=== PATIENT | female | born 1950 | race Caucasian/White ===

== ENCOUNTER → 2017-07-24 | Outpatient (CLI) | payer MEDICAID ==
[~2017-07-24] MED LIST: AMOXICILLIN500 MG PO; ANTIVERT/2525 M1 PO; ANTIVERT25 MG PO; ARTIFICIAL TEAR15 M1 OPH; ATIVAN1 MG PO; AUGMENTIN 875 M1 TAB PO; CARAFATE1 GM PO; CIPRO250 MG PO; CIPROFLOXACIN500 MG PO; CLARITIN10 MG PO; EPI EZ PEN1 MG/ML IM; FLAGYL500 MG PO; K-DUR 1010 MEQ PO; LASIX20 MG PO; MACROBID100 M1 PO; MEDROL DOSEPAK4 MG PO; MOTRIN800 MG PO; NKHM; PRILOSEC20 M2 PO; PT DOES NOT KNOW MED; RISPERDAL1 M1 PO; TRAMADOL HCL50 MG PO; TYLENOL325 M1 PO; VENTOLIN H0.09 MG/AC INH; VIBRAMYCIN100 MG PO; VITAMIN D32000 UNIT PO; XANAX1 MG PO; ZANTAC150 MG PO; ZITHROMAX Z PA250 MG PO; ZOFRAN ODT4 MG SL; ZOFRAN4 MG PO
== END | disposition home or self-care (01) ==
LOC: MRI 02:09
DX: M54.5 Low back pain (principal)

== ENCOUNTER 2017-09-27 06:18 | Inpatient (IN) | payer MEDICAID ==
[2017-09-27] VITALS (7 sets, daily range): BP systolic 100–132; BP diastolic 44–76
[~2017-09-27] VITALS: Ht 167.6 cm; Wt 86.0 kg
--- NOTE | ~2017-09-27 | WRIGHTHP ---
[place], [place] PATIENT HISTORY AND PHYSICAL EXAM NAME: RAJI ORTIZ [facility] #: [id number] UNIT #: [id number] ROOM: H2006 DOCTOR: PANFILO FRANCIS MD BIRTHDATE: [birth year] DOS: 09/27/2017 HISTORY OF PRESENT ILLNESS: The patient presented to the Emergency Department at [facility] with shortness of breath and tachypnea. The patient has allergies to IVP DYE and elevated D-dimer level and showing some vascular congestion on the chest x-ray, atelectasis versus pneumonic infiltrates, left greater than the right base. The patient had complaints of wheezing, shortness of breath and chest congestion for the last couple of days and she had mild leukocytosis. The patient apparently did not want further testing with a VQ scan and she was started on Eliquis in the Emergency Department as a precaution and admitted to ICU for close monitoring. REVIEW OF SYSTEMS: LUNGS: Increased shortness of breath and wheezing and chest congestion. GASTROINTESTINAL: No nausea, vomiting, diarrhea, or constipation. CARDIOVASCULAR: Some vague complaints of chest pains earlier and chest congestion. FAMILY HISTORY: Noncontributory. HOME MEDICATIONS: Omeprazole, Singulair, Depakote, loratadine, Colace, lorazepam, Vicodin, furosemide. PHYSICAL EXAMINATION: GENERAL: Alert and oriented x 3, in no visible distress. HEENT AND NECK: Extraocular movements are intact. Sclerae are anicteric. Oral mucosa is moist and clean. No obvious facial weakness. Neck is supple without any lymphadenopathy. No thyromegaly. No JVD. No carotid arterial bruits. LUNGS: Clear to auscultation. No wheezing. No rhonchi. CARDIOVASCULAR SYSTEM: Heart rate is regular in rate and rhythm. S1 and S2 normally audible. No significant murmur or any other abnormal cardiac sounds. ABDOMEN: Soft, nontender. No obvious organomegaly. Bowel sounds are present. No obvious herniation. EXTREMITIES: Without significant cyanosis. Warm to touch. Leg edema. CENTRAL NERVOUS SYSTEM: Alert and oriented x 3. Cranial nerves II-XII are intact. Speech is normal. The patient is able to move all extremities. Normal muscle strength. Deep tendon reflexes are equal on both sides. Plantars were downgoing. IMPRESSION: 1. The patient with chest pains from uncertain etiology. I will check the cardiac enzymes and consult cardiology. 2. Slight suspicion for pulmonary embolism with elevated D-dimers. The patient does not want a VQ scan, which I recommended and she is allergic to IODINE for a CT scan. I am admitting her to the ICU and keeping her on apixaban and I will get a Pulmonary consult. 3. Acute exacerbation of chronic obstructive pulmonary disease with suspected pneumonic infiltrates, to be treated with bronchodilators, antibiotics and oxygen as needed. 4. Obesity. The patient to work with dietary. [place], [place] PATIENT HISTORY AND PHYSICAL EXAM NAME: RAJI ORTIZ UNIT #: [id number] ROOM: [facility] DOCTOR: PENNY BELL,PANFILO Gonzalez BIRTHDATE: [birth year] 5. Generalized anxiety disorder, is being treated. PANFILO FRANCIS MD CM:HISPHYS:PATIENT HISTORY AND PHYSICAL EXAMINATION 1101 [id number] PANFILO FRANCIS MD 09/27/17 1134 interface
--- NOTE | ~2017-09-27 | DS ---
[place], [place] DISCHARGE SUMMARY NAME: RAJI ORTIZ UNIT #: [id number] ROOM: 506 DOCTOR: PANFILO FRANCIS MD BIRTHDATE: [birth year] DOS: 09/29/2017 DISCHARGE DIAGNOSES: 1. Chest pains from uncertain etiology, most likely musculoskeletal pains or gastrointestinal related pains. Negative cardiac enzymes. The patient was seen by Cardiology. 2. Shortness of breath and wheezing, asthmatoid wheezing, treated with bronchodilators. V/Q scan negative. The patient evaluated by ruby on rails software developer. 3. History of pollen allergies. 4. Chronic constipation. 5. Generalized anxiety disorder. 6. Chronic pain syndrome. 7. GERD and esophagitis. HOSPITAL COURSE: The patient presented to the Emergency Department at [facility] with shortness of breath, tachypnea. D-dimer was elevated. THE PATIENT IS ALLERGIC TO IODINE DYE for later on she was taken for a V/Q scan, which showed low probability for pulmonary embolism. The patient was treated with bronchodilators and her breathing has improved. She is breathing normally. The patient initially treated with Eliquis while the V/Q scan was pending because it could not be performed at the time of admission. Acute asthmatoid wheezing resolved with bronchodilators. The patient generalized anxiety disorder and also chronic pain syndrome with chronic complains of lower back pains for which patient continues to request opioids. Gastroesophageal reflux disease and esophagitis, asymptomatic with omeprazole. The patient to follow up with her PCP, Dr. Luba Palmer as an outpatient. DISCHARGE MANAGEMENT: Lorazepam 0.5 mg b.i.d. p.r.n., Depakote 250 mg b.i.d., Colace 100 mg daily, loratadine 10 mg a day. The patient also takes Depakote 500 mg at bedtime, Singulair 10 mg a day, MiraLax 17 grams a day, omeprazole 20 mg a day. [place], [place] DISCHARGE SUMMARY NAME: RAJI ORTIZ UNIT #: [id number] ROOM: 506 DOCTOR: PANFILO FRANCIS MD BIRTHDATE: [birth year] PANFILO FRANCIS MD CM:JAROD 15 30 PANFILO FRANCIS MD 09/29/172130 interface
--- NOTE | ~2017-09-27 | PR ---
[place], [place] PROGRESS NOTE [id number] UNIT #: [id number] ROOM: 506 DOCTOR: PANFILO FRANCIS MD BIRTHDATE: [birth year] DOS: 09/28/2017 SUBJECTIVE: The patient without anymore chest pains, continues to complain of lower back pains and asks for more pain medications. OBJECTIVE: VITAL SIGNS: Blood pressure 123/70, heart rate 88 beats per minute, breathing 20 times per minute, temperature 98 degrees Fahrenheit. GENERAL APPEARANCE: The patient is alert and oriented x 3, in no visible distress. HEENT AND NECK: Exam within normal limits. CARDIOVASCULAR SYSTEM: Heart rate is regular in rate and rhythm. S1 and S2 normally audible. LUNGS: Clear to auscultation. ABDOMEN: Soft, nontender. No obvious organomegaly. Bowel sounds are present. EXTREMITIES: Without significant cyanosis or edema. IMPRESSION: 1. Chest pains from uncertain etiology. She underwent cardiac stress testing this morning. Full results are still pending. 2. For suspicion of pulmonary embolism, the patient is anticoagulated by Cardiology because of elevation of D-dimer. V/Q scan was low probability. 3. Acute exacerbation of chronic obstructive pulmonary disease, being treated with DuoNeb 4. Obesity. The patient is working with Dietary. 5. Generalized anxiety disorder, followed, treated and controlled. 6. Chronic lower back pains, for which the patient requests Percocet for pain control. The patient apparently had been on opioids as an outpatient for pain control. PANFILO FRANCIS MD CM:PNTRANS [id number] PANFILO FRANCIS MD 09/28/17 1754 interface
[2017-09-27 07:00] LABS: BASO # 0.1 10*3/uL (0.0-0.1); BASO % 0.6 % (0.0-1.0); EOS # 0.2 10*3/uL (0.0-0.4); EOS % 1.9 % (1.0-4.0); HEMATOCRIT 43.9 % (37.0-47.0); HEMOGLOBIN 13.9 g/dl (12.0-16.0); LYMPH # 1.3 10*3/uL (1.3-4.4); LYMPH % 10.5 % (27.0-41.0); MEAN CELL VOLUME 95.4 fl (81.0-99.0); MEAN CORPUSCULAR HGB 30.2 pg (27.0-31.0); MEAN CORPUSCULAR HGB CONC 31.7 g/dl (33.0-37.0); MEAN PLATELET VOLUME 12.2 fl (9.6-12.3); MONO # 0.8 10*3/uL (0.1-1.0); MONO % 6.8 % (3.0-9.0); NEUT # 9.8 10*3/uL (2.3-7.9); NEUT % 79.9 % (47.0-73.0); PLATELET COUNT AUTOMATED 150 10*3/uL (130-400); RED CELL DISTRI WIDTH 13.4 % (0-14.5); WHITE BLOOD COUNT 12.2 10*3/uL (4.8-10.8)
[2017-09-27 08:22] LABS: ALBUMIN 3.4 gm/dl (3.1-4.5); ALKALINE PHOSPHATASE 62 U/L (45-117); BUN 26 mg/dl (7-24); CHLORIDE 103 mmol/L (98-107); CREATININE 1.11 mg/dL (0.55-1.02); POTASSIUM 4.8 mmol/L (3.5-5.1); SGOT/AST 18 IU/L (3-35); SGPT/ALT 19 U/L (12-78); SODIUM 138 mmol/L (136-145); TOTAL PROTEIN 7.4 gm/dL (6.4-8.2)
[2017-09-27 08:23] LABS: TROPONIN I < 0.015 ng/ml (<0.045)
[2017-09-27] MEDS ORDERED: ATIVAN0.5 MG PO (08:32)
[2017-09-27] MEDS ORDERED: ADV 100/50 INH (08:32)
[2017-09-27] MEDS ORDERED: CENTRUM COMPLE1 EACH PO (08:33)
[2017-09-27] MEDS ORDERED: CYMBALTA30 MG PO ×2 (08:33→12:28)
[2017-09-27] MEDS ORDERED: DEPAKOTE500 MG PO (08:35)
[2017-09-27] MEDS ORDERED: DOCUSATE SOD100 MG PO (08:35)
[2017-09-27] MEDS ORDERED: DEPAKOTE250 MG PO (08:35)
[2017-09-27] MEDS ORDERED: EVISTA60 MG PO (08:36)
[2017-09-27] MEDS ORDERED: FLONASE ALLERG9.9 ML NAS (08:36)
[2017-09-27] MEDS ORDERED: MELATONIN5 M1 SL (08:37)
[2017-09-27] MEDS ORDERED: CLARITIN10 MG PO (08:37)
[2017-09-27] MEDS ORDERED: MONTELUKAST SOD10 MG PO (08:37)
[2017-09-27] MEDS ORDERED: OYSTER SHELL 51 EACH PO (08:38)
[2017-09-27] MEDS ORDERED: NORCO 5-325 TA1 EACH PO (08:38)
[2017-09-27] MEDS ORDERED: VITAMIN D31000 UNI1 PO (08:38)
[2017-09-27] MEDS ORDERED: OMEPRAZOLE20 M2 PO (08:38)
[2017-09-27 08:57] LABS: INTERNATIONAL NORM RATIO 0.9 (2.0-3.5)
[2017-09-27 09:48] LABS: ACT PARTIAL THROMBO TIME < 18.0 SECONDS (20.8-31.5)
[2017-09-27] MEDS ORDERED: CYMBALTA60 MG PO (12:28)
[2017-09-27] MEDS ORDERED: MUSCLE RUB CREA35 GM TP (12:30)
[2017-09-27] MEDS ORDERED: ALKA-SELTZER P1 EAC4 PO (12:31)
[2017-09-28] VITALS: BP 101/60
[2017-09-28 08:00] VITALS: BP 96/60
[2017-09-28 12:00] VITALS: BP 123/70
[2017-09-28 12:05] LABS: ACT PARTIAL THROMBO TIME 23.3 SECONDS (20.8-31.5)
[2017-09-28 16:00] VITALS: BP 111/68
[2017-09-28 20:00] VITALS: BP 104/65
[2017-09-29] VITALS: BP 110/64
[2017-09-29 08:00] VITALS: BP 100/61
[2017-09-29 12:00] VITALS: BP 100/57
[2017-09-29 20:00] VITALS: BP 105/47
== END 2017-09-29 21:48 | disposition other institution (70) | DRG 190 ==
LOC: ED 06:18 → EDHOLD 09:22 → 5E 09:22 → EDHOLD 09:48 → ICCU 12:17 → 5E 17:19
PROVIDERS: Internal Medicine Cardiovascular Disease; Student in an Organized Health Care Education/Training Program
DX: J44.1 Chronic obstructive pulmonary disease with (acute) exacerbation (principal); I26.99 Other pulmonary embolism without acute cor pulmonale; I50.9 Heart failure, unspecified; K59.09 Other constipation; F41.1 Generalized anxiety disorder; G89.4 Chronic pain syndrome; M54.5 Low back pain; E66.9 Obesity, unspecified; K21.0 Gastro-esophageal reflux disease with esophagitis; R07.89 Other chest pain; R09.02 Hypoxemia; Z91.041 Radiographic dye allergy status; Z87.891 Personal history of nicotine dependence; Z88.8 Allergy status to other drugs, medicaments and biological substances; Z90.3 Acquired absence of stomach [part of]; Z79.82 Long term (current) use of aspirin; Z68.30 Body mass index [BMI] 30.0-30.9, adult; Z79.899 Other long term (current) drug therapy; Z82.49 Family history of ischemic heart disease and other diseases of the circulatory system; Z83.3 Family history of diabetes mellitus; Z80.9 Family history of malignant neoplasm, unspecified; R79.89 Other specified abnormal findings of blood chemistry

== ENCOUNTER 2017-11-28 06:21 | Inpatient (IN) | payer MEDICAID ==
[~2017-11-28] VITALS: Ht 167.6 cm; Wt 87.5 kg
--- NOTE | ~2017-11-28 | DS ---
[place], [place] DISCHARGE SUMMARY NAME: RAJI ORTIZ [facility] #: [id number] UNIT #: [id number] ROOM: 530 DOCTOR: BREE CELIS MD BIRTHDATE: [birth year] DOS: 12/01/2017 DATE OF ADMISSION: 11/28/2017 DATE OF DISCHARGE: 12/01/2017 DIAGNOSES: 1. Left-sided pneumonia. 2. Mild diastolic congestive heart failure. 3. Hypoxic respiratory failure, pulmonary embolism ruled out. 4. Mild intermittent asthma. 5. Major depression, moderate to severe, recurrent. 6. Mentally retarded developmentally disabled. 7. Generalized anxiety disorder. 8. Degenerative joint disease with spinal stenosis, chronic low back pain. DISCHARGE MEDICATIONS: Medication that she is going to be on are guaifenesin 600 mg p.o. b.i.d., Cipro 500 b.i.d. for 7 days, Ativan 0.5 q. 8 p.r.n., multivitamin 1 tablet daily, Depakote 250 b.i.d. and 500 at bedtime, Colace 100 daily, Evista 60 daily, Flonase 1 spray each nostril daily, loratadine 10 daily, montelukast 10 daily, [place] 5 b.i.d. p.r.n., omeprazole 20 daily, duloxetine 90 mg daily, 60 and 30 together, calcium 500 twice a day, vitamin D 2000 units daily, temazepam 30 at bedtime p.r.n., Advair 100 one puff twice a day, melatonin 5 at bedtime p.r.n., Tylenol 650 twice a day, Lasix 20 Monday, Monday, Monday p.r.n. for leg edema. The patient also needs to have a basic metabolic panel on Monday along with a CBC. Repeat chest x-ray to be done after the completion of antibiotics. DuoNebs q. 8 p.r.n. for shortness of breath. HOSPITAL COURSE: The patient is 67 years old. The patient comes in with hypoxemia. Please refer to H and P for details. After admission, the patient was found to have pneumonia on the chest x-ray. V/Q scan was done, which did not show any evidence of PE. The patient was placed on oxygen, breathing treatments, antibiotics and was admitted. Her white cell count was slightly elevated. A CT scan of the chest was ordered and lactic acid was normal. CT of the chest ordered showed pleural thickening, significant infiltrate in the left upper lobe as well as infiltrate in the left lower lobe. Her white cell count has slowly come down and it is now down to 10.9. BMP shows kidney functions are with a GFR of 53. Electrolytes were normal. Blood culture showed no bacterial growth and the chest x-ray shows some mild fluid overload. IV fluids have been discontinued. The patient was given one dose of Lasix and the plan is to discharge her to home today. She is no longer hypoxic and there is improvement in the pneumonia on the x-ray. After the completion of antibiotics, please do a repeat chest x-ray. DIET: Regular. [place], [place] DISCHARGE SUMMARY NAME: RAJI ORTIZ UNIT #: [id number] ROOM: [facility] DOCTOR: BREE CELIS MD BIRTHDATE: [birth year] BREE CELIS MD CM:DISCHARG 0749 [id number] BREE CELIS MD 12/08/17 0848 interface
--- NOTE | ~2017-11-28 | PR ---
[place], [place] PROGRESS NOTE NAME: RAJI ORTIZ UNIT #: [id number] ROOM: 530 DOCTOR: BREE CELIS MD BIRTHDATE: [birth year] DOS: 11/30/2017 SUBJECTIVE: The patient is doing fine without any complaints this morning, but she appears short of breath, especially when she walked out of the bathroom. OBJECTIVE: VITAL SIGNS: Graphic trend shows a pressure 107/50, pulse of 82, respirations 20, temperature 98.4. LUNGS: Diminished breath sounds and a few rales heard. HEART: Regular. ABDOMEN: Obese. EXTREMITIES: Without any edema. ASSESSMENT AND PLAN: 1. Left upper and left lower lobe pneumonia, possible gram-negative on multiple IV antibiotics. 2. Hypoxic respiratory failure, on oxygen supplementation now. This is most likely from the underlying pneumonia. 3. Mild depression, recurrent. Continue her home medications. BREE CELIS MD CM:PNTRANS BREE CELIS MD 11/30/17 0737 interface
--- NOTE | ~2017-11-28 | WRIGHTHP ---
[place], [place] PATIENT HISTORY AND PHYSICAL EXAM NAME: RAJI ORTIZ [facility] #: [id number] UNIT #: [id number] ROOM: 530 DOCTOR: BREE CELIS MD BIRTHDATE: [birth year] DOS: 11/28/2017 HISTORY OF PRESENT ILLNESS: The patient is a 67 years old. She is a resident of [facility]. I saw her on Monday and she was not having any complaint. She was ambulating without any shortness of breath. Monday morning, she woke up from bed and was unable to get up out of bed. She was complaining of shortness of breath and a sudden onset of cough and a saturation in the 70s, so the patient was sent out for an evaluation. Chest x-ray showed multifocal airspace disease with consolidation with a white cell count of 13,000. She was admitted with diagnosis of possible pneumonia, gram negative. She denies having any chest pains, palpitations, does not have any fever or chills this morning. Does not have any abdominal pain, nausea, any emesis. PAST MEDICAL HISTORY: Significant for, 1. Mild intermittent asthma. 2. Major depression. 3. MRDD. 4. Generalized anxiety disorder. 5. Chronic low back pain from degenerative joint disease with lumbar spinal stenosis. MEDICATIONS: She is currently on are Flonase p.r.n., Advair 100 twice a day, calcium twice a day, vitamin D 2000 daily, Depakote 250 b.i.d. and 500 at bedtime, Colace 100 daily, Cymbalta 90 daily, [place] 5 q. 12 hours p.r.n., Claritin 10 daily, lorazepam 0.5 q. 8 hours p.r.n., melatonin 5 at bedtime, montelukast 10 at bedtime, Evista 60 daily, temazepam 30 at bedtime, multivitamin 1 tablet daily. SOCIAL HISTORY: Nonsmoker, does not use any alcohol. She is a resident of [facility]. PHYSICAL EXAMINATION: GENERAL: She is awake and alert and oriented. VITAL SIGNS: Blood pressure is 115/56, pulse of 75, respirations 20, temperature 98.1. LUNGS: Diminished breath sounds, a few scattered rales heard bilaterally. HEART: Regular. ABDOMEN: Obese, soft, nontender. EXTREMITIES: Without any edema. ASSESSMENT AND PLAN: 1. The patient presents with hypoxic respiratory failure. The patient has been admitted with possible pneumonia, gram negative. We will do a chest CT scan to determine further extent of the infection and place on antibiotics and she is a group home resident. Vancomycin has also been added for possible MRSA coverage. 2. Mild intermittent asthma, has been controlled. Continue her inhalers right now along with the Singulair. 3. Major depression with generalized anxiety disorder, stable on multiple medicines. [place], [place] PATIENT HISTORY AND PHYSICAL EXAM [facility]: [facility] [id number] UNIT #: [id number] ROOM: [facility] DOCTOR: BREE CELIS MD BIRTHDATE: [birth year] BREE CELIS MD CM:HISPHYS:PATIENT HISTORY AND PHYSICAL EXAMINATION 3 0744 BREE CELIS MD 11/29/17 0742 interface
--- NOTE | ~2017-11-28 | PR ---
[place], [place] PROGRESS NOTE NAME: [facility] [id number] UNIT #: [id number] ROOM: 530 DOCTOR: BREE CELIS MD BIRTHDATE: [birth year] DOS: 12/01/2017 SUBJECTIVE: The patient is doing fairly well, does not have any complaints today. PHYSICAL EXAMINATION: VITAL SIGNS: Graphic trend shows a pressure of 126/67, pulse of 82, respirations 17, temperature 98.7. LUNGS: Clear. HEART: Regular. ABDOMEN: Obese, soft. EXTREMITIES: Without any edema. DIAGNOSTIC DATA: Chest x-ray yesterday shows some clearing of pneumonia. LABORATORY DATA: White cell count is down to 10.9, hemoglobin 10.9. BMP within normal limits. ASSESSMENT AND PLAN: 1. The patient with a left-sided pneumonia, on IV antibiotics, improving. 2. Hypoxic respiratory failure. Nuclear scan did not show any evidence of PE. 3. The patient is oxygenating well now. The plan is to discharge her back to the long term. Blood cultures have come back negative. Sepsis has been ruled out. BREE ECLIS MD CM:PNTRANS 0742 1339 BREE CELIS MD 12/01/17 1338 interface
[2017-11-28 06:21] VITALS: BP 116/47
[~2017-11-28 06:21] MED LIST changes: +ADV 100/50 INH; +ALKA-SELTZER P1 EAC4 PO; +ATIVAN0.5 MG PO; +CENTRUM COMPLE1 EACH PO; +CYMBALTA30 MG PO; +CYMBALTA60 MG PO; +DEPAKOTE250 MG PO; +DEPAKOTE500 MG PO; +DOCUSATE SOD100 MG PO; +EVISTA60 MG PO; +FLONASE ALLERG9.9 ML NAS; +MELATONIN5 M1 SL; +MONTELUKAST SOD10 MG PO; +MUSCLE RUB CREA35 GM TP; +NORCO 5-325 TA1 EACH PO; +OMEPRAZOLE20 M2 PO; +OYSTER SHELL 51 EACH PO; +VITAMIN D31000 UNI1 PO
[2017-11-28] MEDS ORDERED: TEMAZEPAM30 MG PO (08:09)
[2017-11-28 08:10] LABS: BASO % 0.3 % (0.0-1.0); EOS % 0.1 % (1.0-4.0); HEMATOCRIT 34.5 % (37.0-47.0); LYMPH # 0.6 10*3/uL (1.3-4.4); LYMPH % 4.4 % (27.0-41.0); MEAN CELL VOLUME 92.2 fl (81.0-99.0); MEAN CORPUSCULAR HGB 29.4 pg (27.0-31.0); MEAN CORPUSCULAR HGB CONC 31.9 g/dl (33.0-37.0); MEAN PLATELET VOLUME 11.5 fl (9.6-12.3); MONO # 1.5 10*3/uL (0.1-1.0); NEUT # 11.5 10*3/uL (2.3-7.9); NEUT % 83.8 % (47.0-73.0); PLATELET COUNT AUTOMATED 152 10*3/uL (130-400); RED BLOOD COUNT 3.74 10*6/uL (4.10-5.10); WHITE BLOOD COUNT 13.7 10*3/uL (4.8-10.8)
[2017-11-28] MEDS ORDERED: ADV 100/50 INH (08:16)
[2017-11-28] MEDS ORDERED: MELATONIN5 M6 PO (08:17)
[2017-11-28 08:18] LABS: ACT PARTIAL THROMBO TIME 19.7 SECONDS (20.8-31.5); INTERNATIONAL NORM RATIO 0.9 (2.0-3.5)
[2017-11-28] MEDS ORDERED: CYMBALTA30 MG PO (08:18)
[2017-11-28 08:28] LABS: ALKALINE PHOSPHATASE 50 U/L (45-117); BUN 17 mg/dl (7-24); CHLORIDE 104 mmol/L (98-107); CREATININE 1.03 mg/dL (0.55-1.02); POTASSIUM 4.6 mmol/L (3.5-5.1); SGOT/AST 17 IU/L (3-35); SGPT/ALT 16 U/L (12-78); SODIUM 139 mmol/L (136-145); TOTAL PROTEIN 6.3 gm/dL (6.4-8.2)
[2017-11-28 08:30] LABS: TROPONIN I < 0.015 ng/ml (<0.045)
[2017-11-28 08:35] VITALS: BP 121/63
[2017-11-28 09:15] VITALS: BP 131/56
[2017-11-28] MEDS ORDERED: GOOD NEIGHBOR650 MG PO (10:01)
[2017-11-28 12:00] VITALS: BP 123/76
[2017-11-28 16:00] VITALS: BP 119/56
[2017-11-28 20:00] VITALS: BP 116/60
[2017-11-29] VITALS: BP 115/56
[2017-11-29 08:00] VITALS: BP 114/55
[2017-11-29 12:00] VITALS: BP 99/62
[2017-11-29 16:00] VITALS: BP 111/57
[2017-11-29 20:00] VITALS: BP 128/47
[2017-11-30] VITALS: BP 107/50
[2017-11-30 08:00] VITALS: BP 131/70
[2017-11-30 08:16] LABS: BASO # 0.1 10*3/uL (0.0-0.1); BASO % 0.6 % (0.0-1.0); EOS # 0.3 10*3/uL (0.0-0.4); EOS % 2.9 % (1.0-4.0); HEMATOCRIT 33.2 % (37.0-47.0); HEMOGLOBIN 10.5 g/dl (12.0-16.0); LYMPH % 8.8 % (27.0-41.0); MEAN CORPUSCULAR HGB 28.8 pg (27.0-31.0); MEAN CORPUSCULAR HGB CONC 31.6 g/dl (33.0-37.0); MEAN PLATELET VOLUME 12.2 fl (9.6-12.3); MONO # 1.1 10*3/uL (0.1-1.0); MONO % 10.3 % (3.0-9.0); NEUT # 8.4 10*3/uL (2.3-7.9); PLATELET COUNT AUTOMATED 148 10*3/uL (130-400); RED BLOOD COUNT 3.65 10*6/uL (4.10-5.10); RED CELL DISTRI WIDTH 14.1 % (0-14.5); WHITE BLOOD COUNT 10.9 10*3/uL (4.8-10.8)
[2017-11-30 08:25] LABS: BUN 13 mg/dl (7-24); CHLORIDE 105 mmol/L (98-107); CREATININE 1.03 mg/dL (0.55-1.02); POTASSIUM 4.4 mmol/L (3.5-5.1); SODIUM 138 mmol/L (136-145)
[2017-11-30 12:00] VITALS: BP 108/50
[2017-11-30 16:00] VITALS: BP 106/56
[2017-11-30 20:00] VITALS: BP 124/67
[2017-11-30 23:00] VITALS: BP 126/67
[2017-12-01] VITALS: BP 126/67
[2017-12-01] MEDS ORDERED: CIPRO500 MG PO (07:43)
== END 2017-12-01 12:27 | DRG 177 ==
LOC: ED 06:21 → 5E 08:23 → EDHOLD 08:23 → 5E 08:41
PROVIDERS: Internal Medicine; Student in an Organized Health Care Education/Training Program
DX: J15.6 Pneumonia due to other Gram-negative bacteria (principal); J96.91 Respiratory failure, unspecified with hypoxia; I50.30 Unspecified diastolic (congestive) heart failure; F33.9 Major depressive disorder, recurrent, unspecified; J45.20 Mild intermittent asthma, uncomplicated; F41.1 Generalized anxiety disorder; G89.29 Other chronic pain; M47.896 Other spondylosis, lumbar region; E66.9 Obesity, unspecified; Z91.041 Radiographic dye allergy status; Z79.899 Other long term (current) drug therapy; Z90.49 Acquired absence of other specified parts of digestive tract; Z82.49 Family history of ischemic heart disease and other diseases of the circulatory system; Z83.3 Family history of diabetes mellitus; Z80.8 Family history of malignant neoplasm of other organs or systems; Z68.31 Body mass index [BMI] 31.0-31.9, adult

== ENCOUNTER 2018-12-12 19:12 | Inpatient (IN) | payer MEDICAID ==
[~2018-12-12] VITALS: Ht 170.1 cm; Wt 82.6 kg
--- NOTE | ~2018-12-12 | CON ---
[place], [place] REPORT OF CONSULTATION NAME: [id number] UNIT #: [id number] ROOM: 405 DOCTOR: KENNETH SILVA MD BIRTHDATE: [birth year] DOS: 12/13/2018 HISTORY OF PRESENT ILLNESS: This is a 68-year-old -[place] woman with a history of depression, history of diastolic heart failure, anxiety, and chronic back pain with lumbar severe spinal stenosis. She has never had a heart attack, coronary artery disease, stroke, cancer or COPD. She smoked in the very remote past. There is no family history of coronary artery disease. Father of cancer. This patient was admitted to the hospital because of rather sudden onset of left lower anterior chest pressure and heaviness that was rather localized without radiation to the back, neck or the shoulders and there was some shortness of breath accompanying this chest discomfort, but she had no sweating, nausea or vomiting. She has not had any PND, orthopnea, or swelling of the lower extremities and no chest pain at rest or with exertion in the past. She was given a sublingual nitroglycerin in the alf and she claimed that it had helped her quite a bit. CORRECTION MEDICATIONS: Include Advair, Flonase, acetaminophen, vitamin D3, Depakote 500 mg b.i.d. and then one tablet at night, and duloxetine 30 mg daily, [place] 5/325 mg b.i.d. p.r.n., levothyroxine 25 mcg daily, loratadine 10 mg daily, mirtazapine 30 mg at night, and Singulair 10 mg daily, omeprazole 10 mg daily, Evista 60 mg daily. PHYSICAL EXAMINATION: GENERAL: This reveals a patient who is quiet, alert, oriented. She is mildly overweight. There is no thyromegaly or finger clubbing. She is not cyanotic, not jaundiced. VITAL SIGNS: Pulse is regular at 66 beats per minute, blood pressure 118/82. NECK: JVP normal. AJR is negative. There is no carotid bruit. HEART: There is no cardiomegaly, no murmurs are present. EXTREMITIES: She had good pedal pulses and no edema at all in the lower extremities. RESPIRATORY: Lungs are clear to percussion and auscultation. There is no chest wall tenderness. ABDOMEN: Nontender. No guarding or rigidity. Liver is not enlarged. Bowel sounds are normal. DIAGNOSTIC STUDIES: An ECG showed normal sinus rhythm with a T-wave inversion in V3 and V4 with poor R-wave progression and low voltage in limb leads. Troponin I levels are normal. Blood count and other renal function are also normal. IMPRESSION: This patient with very little in terms of risk factors for coronary artery disease, had chest pain that came on acutely and was resolved by nitroglycerin. She has ruled out for acute myocardial infarction. A Lexiscan Cardiolite study was performed by Dr. Luba Palmer this morning and I will review the images. [place], [place] REPORT OF CONSULTATION NAME: RAJI ORTIZ UNIT #: [id number] ROOM: 405 DOCTOR: KENNETH SILVA MD BIRTHDATE: [birth year] If her stress test is unremarkable, she can be discharged home. If it is positive, then I will offer further recommendations. I thank you for this consultation. KENNETH SILVA MD CM:CONSTR:REPORT OF CONSULTATION 1229 12/14/18 1234 interface
--- NOTE | ~2018-12-12 | EKG ---
[place], [place] ELECTROCARDIOGRAM REPORT NAME: RAJI ORTIZ UNIT #: [id number] ROOM: 405 DOCTOR: MURPHY DRAFT REPORT BIRTHDATE: [birth year] [facility] Test Date: 2018-12-13 Test Time: 01:31:26 Pat Name: RAJI ORTIZ Department: Room: 405 Gender: F Hydraulic Miner: : 1950 Requested By: ITA MCCAULEY Order Number: [id number] Reading MD: Pierre Webster Measurements Intervals [place] Rate: 69 P: 16 ND: 161 QRS: 10 QRSD: 89 T: 16 QT: 432 QTc: 463 Interpretive Statements Sinus rhythm Low voltage, extremity leads Electronically Signed On 12-13-2018 6:30:13 PDT by Pierre Webster CM:EKGRPT:ELECTROCARDIOGRAM REPORT [id number] 0630 ITA ARRINGTON DRAFT REPORT ITA MCCAULEY MD
--- NOTE | ~2018-12-12 | WRIGHTHP ---
[place], [place] PATIENT HISTORY AND PHYSICAL EXAM NAME: RAJI ORTIZ [facility] #: [id number] UNIT #: [id number] ROOM: 405 DOCTOR: BREE CELIS MD BIRTHDATE: [birth year] DOS: 12/13/2018 HISTORY OF PRESENT ILLNESS: The patient is 68 years old. The patient is very well known to us. She is a resident of [facility], started complaining of left-sided chest pain yesterday, so the patient was given nitroglycerin without much relief and was sent out. After she was evaluated in the ER, she was admitted. She has not had any complaints since admission. During the night remained complaint free. This morning, she is awaiting a stress test. PAST MEDICAL HISTORY: Significant for: 1. MRDD. 2. Major depression. 3. History of diastolic CHF. 4. Mild intermittent asthma. 5. Generalized anxiety disorder. 6. Chronic low back pain with lumbar spinal stenosis. MEDICATIONS: She is currently on are Advair 100, Tylenol, [place], vitamin D, Depakote 500 b.i.d. and at night, Colace 100 daily, duloxetine 30 at bedtime, [place] 5 twice a day p.r.n., levothyroxine 25 mcg daily, loratadine 10 daily, mirtazapine 30 daily, Singulair 10 daily, Centrum Silver 1 tablet daily, omeprazole 20 daily, MiraLax 17 grams daily. SOCIAL HISTORY: Nonsmoker. Resident of [facility]. PHYSICAL EXAMINATION: GENERAL: She is awake and alert and oriented, in no distress. VITAL SIGNS: Graphic trend shows pressure 100/60, pulse of 86, respirations 14, afebrile. LUNGS: Clear. HEART: Regular. ABDOMEN: Obese, soft and nontender. EXTREMITIES: Without any edema. She is pretty emotional this morning. ASSESSMENT AND PLAN: 1. Chest pain, precordial. Rule out myocardial infarction protocol was done, so far has come back negative. The patient is scheduled for an echocardiogram and a stress test and if the stress comes back normal, the patient should be able to go back home, depending on the echo findings, may need to be started on medications. 2. Schizoaffective disorder. Continue Depakote. 3. Major depression, on medications, controlled, no changes made in the treatment plan. [place], [place] PATIENT HISTORY AND PHYSICAL EXAM NAME: RAJI ORTIZ UNIT #: [id number] ROOM: 405 DOCTOR: BREE CELIS MD BIRTHDATE: [birth year] BREE CELIS MD CM:HISPHYS:PATIENT HISTORY AND PHYSICAL EXAMINATION 3 BREE CELIS MD 12/13/18904 interface
--- NOTE | ~2018-12-12 | EKG ---
[place], [place] ELECTROCARDIOGRAM REPORT NAME: RAJI ORTIZ UNIT #: [id number] ROOM: 405 DOCTOR: MURPHY DRAFT REPORT BIRTHDATE: [birth year] [facility] Test Date: 2018-12-12 Test Time: 21:50:48 Pat Name: RAJI ORTIZ Department: Room: 405 Gender: F Embedded Software Engineer: Pamela Gallegos : 1950 Requested By: ITA MCCAULEY Order Number: [id number] Reading MD: Pierre Webster Measurements Intervals [place] Rate: 75 P: 7 [place]: 173 QRS: -1 QRSD: 83 T: 27 QT: 457 QTc: 511 Interpretive Statements Sinus rhythm Borderline T abnormalities, anterior leads Prolonged QT interval Baseline wander in lead(s) V5 No previous ECG available for comparison Electronically Signed On 12-13-2018 6:28:14 PDT by Pierre Webster CM:EKGRPT:ELECTROCARDIOGRAM REPORT 49 0628 ITA ARRINGTON DRAFT REPORT ITA MCCAULEY MD
--- NOTE | ~2018-12-12 | EKG ---
[place], [place] ELECTROCARDIOGRAM REPORT NAME: RAJI ORTIZ UNIT #: [id number] ROOM: 405 DOCTOR: MURPHY DRAFT REPORT BIRTHDATE: [birth year] [facility] Test Date: 2018-12-12 Test Time: 19:12:58 Pat Name: RAJI ORTIZ Department: Room: 405 Gender: F Sheet Tester: Pamela Gallegos : 1950 Requested By: ITA MCCAULEY Order Number: [id number] Reading MD: Pierre Webster Measurements Intervals [place] Rate: 86 P: 26 FL: 158 QRS: 1 QRSD: 72 T: 57 QT: 478 QTc: 572 Interpretive Statements Sinus rhythm Low voltage, extremity leads Prolonged QT interval No previous ECG available for comparison Electronically Signed On 12-13-2018 6:28:04 PDT by Pierre Webster CM:EKGRPT:ELECTROCARDIOGRAM REPORT 11 0628 ITA ARRINGTON DRAFT REPORT ITA MCCAULEY MD
--- NOTE | ~2018-12-12 | ST ---
[place], [place] EXERCISE STRESS TEST REPORT NAME: [id number] UNIT #: [id number] ROOM: 405 DOCTOR: BREE CELIS MD BIRTHDATE: [birth year] DOS: STRESS TEST REASON FOR TESTING: Diagnosis of precordial chest pain. TECHNIQUE: After explaining procedure and obtaining consent, the patient was subjected to Lexiscan stress test. Resting heart rate was 78 with a blood pressure of 100/60, sinus rhythm, nonspecific STs. During the stress test, the patient did not have any complaints of chest pains. ST-T wave changes were noticed in the inferolateral leads. The patient did not have any complaints of chest pains or palpitations. No arrhythmias were noted. After the Lexiscan infusion was over, the patient was injected with Cardiolite and stress images will be taken. ASSESSMENT AND PLAN: Lexiscan stress test with minimal ST-T wave changes. Cardiolite images pending. BREE CELIS MD CM:STRESS:EXERCISE STRESS TEST REPORT [id number] BREE CELIS MD
[~2018-12-12 19:12] MED LIST changes: +CIPRO500 MG PO; +DIVALPROEX SOD500 MG PO; +GOOD NEIGHBOR650 MG PO; +LATU120T PO; +MELATONIN5 M6 PO; +MUSCLE RUB CREA35 GM T; +NITROSTAT0.4 MG SL; +ROZEREM8 MG PO; +SEROQUEL100 MG PO; +SEROQUEL50 MG PO; +TEMAZEPAM30 MG PO; +TRAZODONE50 MG PO
[2018-12-12 19:15] VITALS: BP 128/68
[2018-12-12] MEDS ORDERED: Synthroid,Levo25 MCG PO (19:26)
[2018-12-12] MEDS ORDERED: MIRTAZAPINE30 M2 PO (19:27)
[2018-12-12] MEDS ORDERED: MIRALAX17 GM PO (19:27)
[2018-12-12] MEDS ORDERED: CYMBALTA30 MG PO (19:28)
[2018-12-12 19:43] LABS: BASO # 0.1 10*3/uL (0.0-0.1); BASO % 0.9 % (0.0-1.0); EOS # 0.2 10*3/uL (0.0-0.4); EOS % 2.1 % (1.0-4.0); HEMATOCRIT 38.9 % (37.0-47.0); HEMOGLOBIN 12.8 g/dl (12.0-16.0); LYMPH # 1.5 10*3/uL (1.3-4.4); LYMPH % 18.2 % (27.0-41.0); MEAN CORPUSCULAR HGB 32.2 pg (27.0-31.0); MEAN CORPUSCULAR HGB CONC 32.9 g/dl (33.0-37.0); MEAN PLATELET VOLUME 11.6 fl (9.6-12.3); MONO # 0.9 10*3/uL (0.1-1.0); MONO % 11.1 % (3.0-9.0); NEUT # 5.7 10*3/uL (2.3-7.9); NEUT % 67.3 % (47.0-73.0); PLATELET COUNT AUTOMATED 162 10*3/uL (130-400); RED BLOOD COUNT 3.97 10*6/uL (4.10-5.10); RED CELL DISTRI WIDTH 13.1 % (0-14.5); WHITE BLOOD COUNT 8.5 10*3/uL (4.8-10.8)
[2018-12-12 20:01] LABS: ACT PARTIAL THROMBO TIME 23.1 SECONDS (20.0-32.1); INTERNATIONAL NORM RATIO 0.9 (2.0-3.5)
[2018-12-12 20:18] LABS: ALBUMIN 2.9 gm/dl (3.1-4.5); ALKALINE PHOSPHATASE 53 U/L (45-117); BUN 29 mg/dl (7-24); CHLORIDE 108 mmol/L (98-107); CREATININE 1.17 mg/dL (0.55-1.02); POTASSIUM 4.1 mmol/L (3.5-5.1); SGOT/AST 12 IU/L (3-35); SGPT/ALT 20 U/L (12-78); SODIUM 142 mmol/L (136-145); TOTAL PROTEIN 6.3 gm/dL (6.4-8.2)
[2018-12-12 20:26] LABS: TROPONIN I < 0.015 ng/ml (<0.045)
[2018-12-12 20:30] VITALS: BP 110/54
[2018-12-12 22:28] VITALS: BP 118/60
[2018-12-12 22:30] VITALS: BP 125/68
[2018-12-12] MEDS ORDERED: ADV 100/50 INH (22:40)
[2018-12-13 07:13] LABS: BASO # 0.1 10*3/uL (0.0-0.1); BASO % 0.9 % (0.0-1.0); EOS # 0.3 10*3/uL (0.0-0.4); EOS % 3.4 % (1.0-4.0); HEMATOCRIT 41.3 % (37.0-47.0); HEMOGLOBIN 13.5 g/dl (12.0-16.0); LYMPH # 2.5 10*3/uL (1.3-4.4); LYMPH % 31.3 % (27.0-41.0); MEAN CELL VOLUME 98.1 fl (81.0-99.0); MEAN CORPUSCULAR HGB 32.1 pg (27.0-31.0); MEAN CORPUSCULAR HGB CONC 32.7 g/dl (33.0-37.0); MEAN PLATELET VOLUME 11.1 fl (9.6-12.3); MONO # 0.9 10*3/uL (0.1-1.0); MONO % 11.2 % (3.0-9.0); NEUT # 4.2 10*3/uL (2.3-7.9); NEUT % 52.9 % (47.0-73.0); PLATELET COUNT AUTOMATED 169 10*3/uL (130-400); RED BLOOD COUNT 4.21 10*6/uL (4.10-5.10); RED CELL DISTRI WIDTH 13.2 % (0-14.5)
[2018-12-13 08:00] VITALS: BP 118/82
[2018-12-13 08:07] LABS: ALBUMIN 3.2 gm/dl (3.1-4.5); ALKALINE PHOSPHATASE 56 U/L (45-117); BUN 21 mg/dl (7-24); CHLORIDE 104 mmol/L (98-107); CREATININE 1.01 mg/dL (0.55-1.02); POTASSIUM 4.3 mmol/L (3.5-5.1); SGOT/AST 16 IU/L (3-35); SGPT/ALT 21 U/L (12-78); SODIUM 140 mmol/L (136-145); TOTAL PROTEIN 6.8 gm/dL (6.4-8.2)
[2018-12-13 12:00] VITALS: BP 100/68
== END 2018-12-13 14:25 | DRG 313 ==
LOC: ED 19:12 → EDHOLD 21:06 → 4E 21:06
PROVIDERS: Emergency Medicine Emergency Medical Services; ADMIT Internal Medicine
PROC: 4A02XM4 Measurement of Cardiac Total Activity, External Approach (ICD-10-PCS; principal; 2018-12-13)
PROC: 3E073KZ Introduction of Other Diagnostic Substance into Coronary Artery, Percutaneous Approach (ICD-10-PCS; 2018-12-13)
DX: R07.2 Precordial pain (principal); I50.32 Chronic diastolic (congestive) heart failure; F32.9 Major depressive disorder, single episode, unspecified; F41.1 Generalized anxiety disorder; J45.20 Mild intermittent asthma, uncomplicated; G89.29 Other chronic pain; M54.5 Low back pain; F25.9 Schizoaffective disorder, unspecified; Z91.048 Other nonmedicinal substance allergy status; Z91.041 Radiographic dye allergy status; Z82.49 Family history of ischemic heart disease and other diseases of the circulatory system; Z83.3 Family history of diabetes mellitus; Z80.9 Family history of malignant neoplasm, unspecified

== ENCOUNTER 2021-11-25 10:08 | Inpatient (IN) | payer MEDICAID ==
[~2021-11-25] VITALS: Wt 86.2 kg
[~2021-11-25 10:08] MED LIST changes: +MIRALAX17 GM PO; +MIRTAZAPINE30 M2 PO; +Synthroid,Levo25 MCG PO
[2021-11-25 10:10] VITALS: BP 108/55
[2021-11-25 11:18] LABS: CREATININE 1.37 mg/dL (0.55-1.02); POTASSIUM 4.6 mmol/L (3.5-5.1); TOTAL PROTEIN 6.4 gm/dL (6.4-8.2)
[2021-11-25 11:35] LABS: BASO % 0.2 % (0.0-1.0); EOS % 0.1 % (1.0-4.0); HEMATOCRIT 40.8 % (37.0-47.0); LYMPH # 0.9 10*3/uL (1.3-4.4); LYMPH % 6.4 % (27.0-41.0); MEAN CELL VOLUME 95.6 fl (81.0-99.0); MEAN CORPUSCULAR HGB 31.9 pg (27.0-31.0); MEAN CORPUSCULAR HGB CONC 33.3 g/dl (33.0-37.0); MONO # 1.3 10*3/uL (0.1-1.0); MONO % 9.7 % (3.0-9.0); NEUT # 11.6 10*3/uL (2.3-7.9); NEUT % 83.4 % (47.0-73.0); PLATELET COUNT AUTOMATED 130 10*3/uL (130-400); RED BLOOD COUNT 4.27 10*6/uL (4.10-5.10); RED CELL DISTRI WIDTH 14.1 % (0-14.5); WHITE BLOOD COUNT 13.9 10*3/uL (4.8-10.8)
[2021-11-25 15:11] LABS: BILIRUBIN 1+ (Negative); BLOOD Negative (Negative); CLARITY Turbid (Clear); COLOR Dark Yellow (Yellow); GLUCOSE Negative (Negative); KETONE 1+ (Negative); LEUKO ESTERASE 1+ (Negative); NITRITE Negative (Negative); SPECIFIC GRAVITY >= 1.030 (1.001-1.030)
[2021-11-25 15:32] LABS: BACTERIA 2+; WBC 16-20 wbc/hpf (0-5)
[2021-11-25 17:00] VITALS: BP 103/81
[2021-11-25 20:00] VITALS: BP 116/54
[2021-11-26] VITALS: BP 115/49
[2021-11-26] MEDS ORDERED: CIPRO500 MG PO (07:22)
[2021-11-26 08:00] VITALS: BP 126/80
[2021-11-26 12:00] VITALS: BP 135/83
[2021-11-26 16:00] VITALS: BP 137/60
[2021-11-26 20:00] VITALS: BP 120/64
[2021-11-27] VITALS: BP 135/85
[2021-11-27 03:37] VITALS: BP 134/53
[2021-11-27 03:50] LABS: BUN 16 mg/dl (7-24); CHLORIDE 108 mmol/L (98-107); CREATININE 0.95 mg/dL (0.55-1.02); POTASSIUM 4.7 mmol/L (3.5-5.1); SODIUM 141 mmol/L (136-145)
[2021-11-27 08:00] VITALS: BP 134/79
[2021-11-27 12:00] VITALS: BP 145/66
[2021-11-27 16:00] VITALS: BP 140/80
== END 2021-11-27 19:56 | DRG 137 ==
LOC: ED 10:08 → 4E 13:21 → EDHOLD 13:21 → 4E 15:53
PROVIDERS: Family Medicine; ADMIT Internal Medicine; ATTEND Internal Medicine
DX: J15.6 Pneumonia due to other Gram-negative bacteria (principal); F31.9 Bipolar disorder, unspecified; J96.01 Acute respiratory failure with hypoxia; I50.31 Acute diastolic (congestive) heart failure; I47.1 Supraventricular tachycardia; E87.2 Acidosis; R07.89 Other chest pain; G89.29 Other chronic pain; M54.50 Low back pain, unspecified; E03.9 Hypothyroidism, unspecified; Z91.041 Radiographic dye allergy status; Z87.891 Personal history of nicotine dependence

== ENCOUNTER 2022-01-31 00:37 | Emergency (ER) | payer MEDICAID ==
[~2022-01-31 00:37] MED LIST changes: +RALOXIFENE HYDR60 MG PO; +RISPERIDONE1 MG PO
[2022-01-31 01:11] LABS: BASO # 0.1 10*3/uL (0.0-0.1); BASO % 0.7 % (0.0-1.0); EOS # 0.1 10*3/uL (0.0-0.4); EOS % 1.5 % (1.0-4.0); LYMPH # 2.5 10*3/uL (1.3-4.4); LYMPH % 29.4 % (27.0-41.0); MEAN CELL VOLUME 96.2 fl (81.0-99.0); MEAN CORPUSCULAR HGB 32.1 pg (27.0-31.0); MEAN CORPUSCULAR HGB CONC 33.3 g/dl (33.0-37.0); MONO # 0.9 10*3/uL (0.1-1.0); MONO % 10.8 % (3.0-9.0); NEUT # 4.8 10*3/uL (2.3-7.9); PLATELET COUNT AUTOMATED 184 10*3/uL (130-400); RED BLOOD COUNT 4.68 10*6/uL (4.10-5.10); RED CELL DISTRI WIDTH 13.2 % (0-14.5); WHITE BLOOD COUNT 8.5 10*3/uL (4.8-10.8)
[2022-01-31 01:27] LABS: ALKALINE PHOSPHATASE 55 U/L (45-117); BUN 32 mg/dl (7-24); CHLORIDE 106 mmol/L (98-107); CREATININE 0.99 mg/dL (0.55-1.02); POTASSIUM 4.4 mmol/L (3.5-5.1); SGOT/AST 11 IU/L (3-35); SGPT/ALT 21 U/L (12-78); SODIUM 140 mmol/L (136-145); TOTAL PROTEIN 6.4 gm/dL (6.4-8.2)
[2022-01-31 01:35] LABS: ACT PARTIAL THROMBO TIME 25.8 SECONDS (20.0-32.1)
[2022-01-31 01:42] LABS: LIPASE 186 U/L (73-393)
== END 2022-01-31 03:49 | disposition home or self-care (01) ==
LOC: ED 00:37
PROVIDERS: Family Medicine
DX: R07.89 Other chest pain (principal); Z91.041 Radiographic dye allergy status; Z88.8 Allergy status to other drugs, medicaments and biological substances; Z79.899 Other long term (current) drug therapy; Z98.890 Other specified postprocedural states; Z87.891 Personal history of nicotine dependence

== ENCOUNTER 2022-02-04 09:42 | Emergency (ER) | payer MEDICAID ==
[~2022-02-04] VITALS: Ht 172.7 cm; Wt 82.6 kg
[2022-02-04 10:11] LABS: BASO # 0.1 10*3/uL (0.0-0.1); BASO % 0.8 % (0.0-1.0); EOS # 0.2 10*3/uL (0.0-0.4); EOS % 2.5 % (1.0-4.0); HEMATOCRIT 43.1 % (37.0-47.0); LYMPH # 1.5 10*3/uL (1.3-4.4); LYMPH % 24.6 % (27.0-41.0); MEAN CELL VOLUME 95.8 fl (81.0-99.0); MEAN CORPUSCULAR HGB CONC 33.4 g/dl (33.0-37.0); MONO # 0.6 10*3/uL (0.1-1.0); MONO % 9.9 % (3.0-9.0); NEUT # 3.7 10*3/uL (2.3-7.9); NEUT % 61.9 % (47.0-73.0); PLATELET COUNT AUTOMATED 149 10*3/uL (130-400); RED CELL DISTRI WIDTH 13.2 % (0-14.5)
[2022-02-04 10:23] LABS: ACT PARTIAL THROMBO TIME 25.2 SECONDS (20.0-32.1)
[2022-02-04 10:30] LABS: ALKALINE PHOSPHATASE 49 U/L (45-117); BUN 28 mg/dl (7-24); CHLORIDE 105 mmol/L (98-107); CREATININE 1.08 mg/dL (0.55-1.02); LIPASE 150 U/L (73-393); POTASSIUM 4.5 mmol/L (3.5-5.1); SGOT/AST 14 IU/L (3-35); SGPT/ALT 20 U/L (12-78); SODIUM 140 mmol/L (136-145)
[2022-02-04 11:13] LABS: BILIRUBIN Negative (Negative); BLOOD Negative (Negative); CLARITY Cloudy (Clear); COLOR Dark Yellow (Yellow); GLUCOSE Negative (Negative); KETONE 1+ (Negative); LEUKO ESTERASE Trace (Negative); NITRITE Negative (Negative); SPECIFIC GRAVITY >= 1.030 (1.001-1.030)
[2022-02-04 11:22] LABS: BACTERIA 1+; CALCIUM OXALATE CRYSTALS 2+; WBC 0-2 wbc/hpf (0-5)
[2022-02-04 11:23] LABS: HYALINE CAST 0-2
== END 2022-02-04 19:00 ==
LOC: ED 09:42
PROVIDERS: Emergency Medicine
DX: M54.9 Dorsalgia, unspecified (principal); Z91.041 Radiographic dye allergy status; Z79.899 Other long term (current) drug therapy; Z87.891 Personal history of nicotine dependence; W18.39XA Other fall on same level, initial encounter; Y93.89 Activity, other specified; Y92.89 Other specified places as the place of occurrence of the external cause; Y99.8 Other external cause status

== ENCOUNTER 2022-02-15 06:30 | Emergency (ER) | payer MEDICAID ==
[2022-02-15 10:11] LABS: BASO % 0.2 % (0.0-1.0); EOS # 0.1 10*3/uL (0.0-0.4); EOS % 0.9 % (1.0-4.0); HEMATOCRIT 42.8 % (37.0-47.0); LYMPH # 1.3 10*3/uL (1.3-4.4); LYMPH % 15.7 % (27.0-41.0); MEAN CELL VOLUME 96.4 fl (81.0-99.0); MEAN CORPUSCULAR HGB CONC 33.2 g/dl (33.0-37.0); MEAN PLATELET VOLUME 12.1 fl (9.6-12.3); MONO # 0.8 10*3/uL (0.1-1.0); MONO % 9.6 % (3.0-9.0); NEUT # 6.2 10*3/uL (2.3-7.9); NEUT % 73.2 % (47.0-73.0); PLATELET COUNT AUTOMATED 104 10*3/uL (130-400); RED BLOOD COUNT 4.44 10*6/uL (4.10-5.10); RED CELL DISTRI WIDTH 13.2 % (0-14.5); WHITE BLOOD COUNT 8.5 10*3/uL (4.8-10.8)
[2022-02-15 10:27] LABS: ALKALINE PHOSPHATASE 65 U/L (45-117); BUN 24 mg/dl (7-24); CHLORIDE 108 mmol/L (98-107); CREATININE 0.81 mg/dL (0.55-1.02); LIPASE 113 U/L (73-393); POTASSIUM 4.2 mmol/L (3.5-5.1); SGOT/AST 12 IU/L (3-35); SGPT/ALT 17 U/L (12-78); SODIUM 142 mmol/L (136-145)
== END 2022-02-15 12:30 ==
LOC: ED 06:30
PROVIDERS: Emergency Medicine
DX: R07.9 Chest pain, unspecified (principal); Z91.041 Radiographic dye allergy status; Z79.899 Other long term (current) drug therapy; Z87.891 Personal history of nicotine dependence

== ENCOUNTER → 2023-07-07 | Outpatient (CLI) | payer MEDICAID | END | disposition home or self-care (01) | LOC: CT 14:00 | PROVIDERS: ATTEND Internal Medicine | DX: R05.3 Chronic cough (principal); I25.10 Atherosclerotic heart disease of native coronary artery without angina pectoris; R59.9 Enlarged lymph nodes, unspecified; Z98.890 Other specified postprocedural states ==

== ENCOUNTER → 2024-06-19 | Outpatient (CLI) | payer MEDICAID ==
[~2024-06-19] MED LIST changes: +'KLONOPIN0.5 MG PO; +8 HOUR PAIN RE650 M1 PO; +ARIPIPRAZOLE5 MG PO; +AUSTEDO XR24 MG PO; +BARIUM SULFATE 98% 340 GM BOT PO ONE; +BENZONATATE100 M1 PO; +CENTRUM SILVER1 EACH PO; +CLONAZEPAM1 MG PO; +FLUOXETINE HYDR20 M1 PO; +Ipratropium Brom3 ML INH; +LEVOTHYROXINE25 MCG PO; +LOPERAMIDE HCL2 MG PO; +MEGACE 40400 MG/10 PO; +MELATONIN5 M7 PO; +MILK OF MA400 MG/51 PO; +NITROGLYCERIN0.4 MG SL; +OYSTER SHELL PO; +ROBITUSSIN-DM 110 ML PO; +SINEMET 10-1001 EACH PO; +SYMB80 INH; +TRIHEXYPHENIDYL2 M3 PO
== END | disposition home or self-care (01) ==
LOC: RAD/SH 00:38
PROVIDERS: ATTEND Internal Medicine
DX: R13.19 Other dysphagia (principal)

== ENCOUNTER → 2024-11-28 | Outpatient (CLI) | payer MEDICAID | END | disposition home or self-care (01) | LOC: RAD/SH 13:00 | PROVIDERS: ATTEND Internal Medicine | DX: Z71.3 Dietary counseling and surveillance (principal) ==

== ENCOUNTER → 2025-02-06 | Outpatient (CLI) | payer MEDICAID | END | disposition home or self-care (01) | LOC: RAD/SH 08:53 | PROVIDERS: ATTEND Internal Medicine | DX: R47.02 Dysphasia (principal) ==

== ENCOUNTER → 2025-03-07 | Outpatient (CLI) | payer MEDICAID ==
[~2025-03-07] MED LIST changes: -BARIUM SULFATE 98% 340 GM BOT PO ONE
== END | disposition home or self-care (01) ==
LOC: CT 10:00
PROVIDERS: ATTEND Internal Medicine
DX: R20.2 Paresthesia of skin (principal)

== ENCOUNTER → 2025-05-20 | Outpatient (CLI) | payer MEDICAID | END | disposition home or self-care (01) | LOC: CT 07:51 | PROVIDERS: ATTEND Internal Medicine | DX: J98.11 Atelectasis (principal); R91.8 Other nonspecific abnormal finding of lung field ==